=== PATIENT | female | born 1970 | race Caucasian/White ===

== ENCOUNTER 2017-02-26 19:49 | Emergency (ER) | payer BC ==
[2017-02-26 20:04] VITALS: BP 168/98; PULSE 90; RESP 18; TEMP 98.1; O2SAT 98
--- NOTE | 2017-02-26 20:14 | ED PDOC ---
HPI: Headache Chief Complaint (Nursing): Headache Chief Complaint (Provider): Headache History Per: Patient Additional Complaint(s): 46 yo female, PMH of Chronic neck pain s/p 2 cervical surgeries, presents to ED with complaints of left sided neck pain, radiating into occipital scalp since this am. No medications taken at home thus far. Past Medical History Reviewed: Nursing Documentation, Vital Signs Vital Signs: Last Vital Signs Temp 98.1 F 02/26/17 20:00 Pulse 90 02/26/17 20:00 Resp 18 02/26/17 20:00 BP 168/98 H 02/26/17 20:00 Pulse Ox 98 02/26/17 20:00 - Medical History PMH: Asthma Other PMH: neck pain - Surgical History Other surgeries: cervical dusion and discectomy - Family History Family History: States: No Known Family Hx - Living Arrangements Living Arrangements: With Family - Social History Current smoker - smoking cessation education provided: No Alcohol: Social Drugs: Denies - Home Medications Home Medications: Ambulatory Orders Medication Instructions Recorded Cyclobenzaprine [Cyclobenzaprine 10 mg PO TID #20 tab 02/26/17 HCl] traMADol [Ultram] 50 mg PO Q6 #10 tab 02/26/17 - Allergies Allergies/Adverse Reactions: Allergies Allergy/AdvReac Type Severity Reaction Status Date / Time FISH Allergy RASH Verified 02/26/17 19:59 acetaminophen [From Percocet] AdvReac elevated BP Verified 02/26/17 19:59 oxycodone AdvReac bp gets Verified 02/26/17 19:59 elevated with oxycodone rosuvastatin [From Crestor] AdvReac muscle Verified 02/26/17 19:59 cramps Review of Systems ROS Statement: Except As Marked, All Systems Reviewed And Found Negative Musculoskeletal: Positive for: Neck Pain Physical Exam - Reviewed Nursing Documentation Reviewed: Yes Vital Signs Reviewed: Yes - Physical Exam Appears: Positive for: Well, Non-toxic, No Acute Distress Head Exam: Positive for: ATRAUMATIC, NORMAL INSPECTION, NORMOCEPHALIC Skin: Positive for: Normal Color, Warm, DRY Eye Exam: Positive for: EOMI, Normal appearance, PERRL ENT: Positive for: Normal ENT Inspection Neck: Positive for: Normal, Painless ROM Cardiovascular/Chest: Positive for: Regular Rate, Rhythm Respiratory: Positive for: CNT, Normal Breath Sounds Gastrointestinal/Abdominal: Positive for: Normal Exam, Bowel Sounds, Soft Back: Positive for: Normal Inspection Extremity: Positive for: Normal ROM Neurologic/Psych: Positive for: Alert, Oriented - ECG O2 Sat by Pulse Oximetry: 98 Medical Decision Making Medical Decision Making: Medicated with Ultram and Flexeril PO XT: NAD, as read by [facility] Pt doing well on re-eval, asking to go home. Disposition - Clinical Impression Clinical Impression: Cervical pain (neck) - Patient ED Disposition Is Patient to be Admitted: No - Disposition Disposition: Routine/Home Disposition Time: 23:57 Condition: STABLE Prescriptions: Cyclobenzaprine [Cyclobenzaprine HCl] 10 mg PO TID #20 tab traMADol [Ultram] 50 mg PO Q6 #10 tab Instructions: Cervical Sprain (ED) Forms: [facility] (Sl[place]ak), [facility] School/Work Excuse
--- NOTE | 2017-02-27 10:17 | RAD ---
PROCEDURE: Cervical Spine Radiographs. HISTORY: Pain. No history of recent/ related trauma provided COMPARISON: 01/21/2008 preoperative study FINDINGS: BONES: Evidence of spinal fusion. Orthopedic hardware related to ACDF lower cervical spine. DISC SPACES: Normal. SOFT TISSUES: Normal. No prevertebral soft tissue swelling. OTHER FINDINGS: None. IMPRESSION: No acute findings related to/accounting for the clinical presentation.
== END 2017-02-26 23:40 | disposition home or self-care (01) ==
LOC: H.ER 19:49
DX: M54.2 Cervicalgia (principal)